=== PATIENT | female | born 1945 | race Caucasian/White ===

== ENCOUNTER 2022-09-14 12:01 | Emergency (ER) | payer MEDICARE, SELFPAY ==
--- NOTE | ~2022-09-14 | CT_ITS ---
EXAMINATION: CT brain, CT cervical spine and CT facial bones without IV contrast. Clinical indications: Head injury. Status post fall. COMPARISON: None. TECHNIQUE: 5 mm thin axial and reformatted 2 mm thin sagittal and coronal images of brain were obtained. 3 mm thin axial and reformatted 2 mm thin sagittal and coronal images of cervical spine were obtained. Lastly axial 3 mm thin and reformatted 1.5 mm thin sagittal and coronal images of facial bones were obtained. DLP [address] examination was performed using dose optimization technique as appropriate, variously including the following: Automated exposure control Adjustment of MA and/or KV according to patient size(this includes techniques or standardized protocols for targeted exams where dose is matched to indication/reason for exam; extremities or head. Use of iterative reconstruction techniques. FINDINGS: Brain: There is no acute intra-axial, extra-axial bleed, masses or midline shift. There is no acute infarction in evolution. There is no edema. The lateral ventricles are symmetrical in size and configuration but enlarged. The arreola to white matter differentiation is maintained normal. There is mild anterior falx calcification. Bone windows reveal no calvarial abnormality. No scalp soft tissue abnormality seen. Bilateral paranasal sinuses and mastoid air cells are well-aerated. Facial bones: There is no maxillofacial, nasal or mandibular fracture. The TM joints are symmetrical and normal. The maxillofacial and nasal soft tissues are normal. The bony orbits are intact. There is normal symmetry of bilateral optic globes, optic nerve and intraorbital orbital and preseptal soft tissues. There is 2.2 cm polyp or retention cyst left maxillary sinus. Rest of the paranasal sinuses are well-aerated. The nasal cavity and the nasal pharyngeal airway is widely patent. Mild elmo bullosa of right middle turbinate is noted. The anterior maxillary spine is intact. Cervical spine: There is mild straightening of cervical lordosis. The vertebral heights and alignment is normal. There is loss of C5-C6 and C7-T1 disc heights with mild ventral and posterior spondylosis at C4-C5, C5-C6 and C7-T1 disc levels. The craniovertebral junction and the C1-C2 alignment is normal. The prevertebral and paravertebral soft tissues are normal. There is moderate right C2-C3 facet joint arthropathy. No visible acute fracture, dislocation or subluxation seen. CT/CT cervical spine wo IV con IMPRESSION: 1. No acute intracranial process seen. 2. Age-related cerebral volume loss. 3. There is no maxillofacial, nasal or mandibular fracture. 4. There is no acute fracture or dislocation in cervical spine. There are degenerative disc changes C5-C6 and C7-T1 disc levels with spondylosis.
--- NOTE | ~2022-09-14 | XR_ITS ---
EXAMINATION: XR WRIST, LEFT XR HAND, LEFT CLINICAL INFORMATION: Fall, trauma, pain, visible deformity. COMPARISON: None available. TECHNIQUE: The left hand and wrist are imaged together and 3 large [id number] images. A navicular view of the wrist is also provided for a total of 4 views. FINDINGS: There is fracture distal radial metaphysis predominantly transverse, possibly comminuted, with impaction. No definite extension to the distal radial articular surface on plain film. There is slight positive ulnar variance with dorsal subluxation of the distal ulnar from the sigmoid notch. The remainder the bony structures appear intact. There are prominent osteoarthritic changes first carpometacarpal joint with joint narrowing and subchondral sclerosis and osteophytes. Mild narrowing second and third MCP joints present. XR/XR hand wrist LT IMPRESSION: -Fracture distal radial metaphysis, possibly comminuted, with impaction. -Positive ulnar variance with dorsal subluxation distal ulna from sigmoid notch. -Prominent osteoarthritis first carpometacarpal joint. Mild joint narrowing second and third MCP.
[2022-09-14 12:28] VITALS: BP 103/43; PULSE 56; RESP 20; TEMP 36.1; O2SAT 100; BMI 20.7
--- NOTE | 2022-09-14 12:30 | ED_ITS ---
HPI - Fall General Chief Complaint: Fall <ZACH Liao Last Filed: 09/14/22 12:36> Stated Complaint: Fall/Hit face/L wrist pain <ZACH Liao Last Filed: 09/14/22 12:36> Time Seen by Provider: 09/14/22 15:37 <ZACH Liao Last Filed: 09/14/22 12:36> Source: patient <Kane Clinton - Last Filed: 09/14/22 17:42> Limitations: no limitations <Kane Clinton - Last Filed: 09/14/22 17:42> History of Present Illness HPI Narrative: 76-year-old female presents to the ER after tripping and falling and injuring her left wrist. Patient states that happened approximately 1 hour ago and she fell on a paved driveway. Positive swelling and pain to the left wrist and associated nausea. Patient denies loss consciousness or hitting her head. Symptoms mild to moderate. Patient has a history of hypothyroidism has taken [id number] NSAIDs for pain in the past with states she has it does not take Tylenol. Pain in left wrist increases with any range of motion or palpation. <Kane Clinton - Last Filed: 09/14/22 17:42> Related Data Home Medications: Previous Rx's Medication Instructions Recorded ibuprofen 600 mg tablet 600 mg PO TID PRN pain #20 tabs 09/14/22 tramadol 50 mg tablet 50 mg PO BID PRN pain #14 tabs 09/14/22 <ZACH Liao Last Filed: 09/14/22 12:36> Allergies/Adverse Reactions: Allergies Allergy/AdvReac Type Severity Reaction Status Date / Time No Known Allergies Allergy Verified 09/14/22 12:30 <ZACH Liao Last Filed: 09/14/22 12:36> Review of Systems Review of Systems: General: No fever, no chills Ophthalmology: No vision changes, no discharge ENT: No sore throat, no ear pain Cardiovascular, no chest pain, no peripheral edema no shortness of breath Respiratory: No dyspnea, no sputum production, no cough Muscle skeletal: Positive left wrist pain and swelling GI: No abdominal pain: No nausea vomiting, no diarrhea Psychiatric: No depression Skin: Left wrist positive ecchymosis and swelling Immunology: No immunocompromised Hematology: No bleeding, no bruising <Kane Clinton - Last Filed: 09/14/22 17:42> FOR[facility]LY [facility], [facility] Social History Social History: Social History Advance Directives: No Advance Directives Information Provided: No <ZACH Liao - Last Filed: 09/14/22 12:36> Physical Exam Vital Signs: Vital Signs: Last Vital Signs Temp 97 F 09/14/22 12:28 Pulse 56 09/14/22 12:28 Resp 20 09/14/22 12:28 BP 103/43 L 09/14/22 12:28 Pulse Ox 100 09/14/22 12:28 O2 Del Method Room Air 09/14/22 12:28 BMI result Body Mass Index 20.7 <ZACH Liao - Last Filed: 09/14/22 12:36> Vital Signs: Last Vital Signs Temp 97 F 09/14/22 12:28 Pulse 56 09/14/22 12:28 Resp 20 09/14/22 12:28 BP 103/43 L 09/14/22 12:28 Pulse Ox 100 09/14/22 12:28 O2 Del Method Room Air 09/14/22 12:28 BMI result Body Mass Index 20.7 <Kane Clinton - Last Filed: 09/14/22 17:42> General appearance: Awake, alert, cooperative, in no acute distress Skin: Warm, dry, no rash, positive ecchymosis swelling to the dorsum of the left wrist Eyes: PERRL, EOMI, no icterus ENT: Oropharynx normal Neck: Soft supple full range of motion, no midline tenderness Pulmonary: Breath sounds clear to auscultation bilaterally, no accessory muscle use Cardiovascular: Regular rate and rhythm no murmurs and rubs Extremities: Left wrist positive swelling with dorsal edema slight deformity. Pulses sensation intact Neuro: Alert oriented x3, no focal deficit, hall worker is equal bilaterally Psych: Normal affect <Kane Clinton - Last Filed: 09/14/22 17:42> Course Course Course Narrative: RME: 76yo F w/PMHx hypothyroid c/o L facial pain, nausea and L wrist pain s/p mechanical trip in fall in driveway 30mins [employer]. states tripped over her pants, denies sx prior to fall. +head trauma, no LOC, denies taking AC. denies neck and back pain +L cheek ttp noted, no midline cervical ttp, +deformity to L wrist with ttp, NV intact Head/c-spine/facial CT and XRs ordered Full HPI, ROS and PE to be performed by primary ED provider. <ZACH Liao - Last Filed: 09/14/22 12:36> Medical Decision Making Medical Decision Making MDM Narrative: Close head injury Facial contusion Facial fracture Cervical fracture Left wrist contusion Left wrist sprain Left wrist fracture 76-year-old female status post fall in her driveway. Positive left wrist swelling and pain. Patient denies hitting her head or loss of consciousness. Will send message to orthopedics 17:00 Images reviewed by orthopedic PA use advised splint follow-up Saturday with orthopedics Will plan to apply sugar-tong ortho glass splint Sugar tongue splint applied by tech positive CMS post splint Placement will discharge home with sling. 600 mg Motrin p.o. <Kane Clinton - Last Filed: 09/14/22 17:42> Radiology Impression Radiologist Impression: [address] [id number] Scan ReportSigned Patient: Odette Thakkar GMR#: [id number]: 1945cct:[id number]/Sex: 76 / FADM Date: 09/14/22Loc: [email or web address].EDAttending Dr: Ordering Physician: Sahra Montez Date of Service: 09/14/22 Procedure(s): CT head/brain wo IV con Accession Number(s): [id number] cc: Sahra Montez~ EXAMINATION: CT brain, CT cervical spine and CT facial bones without IV contrast. Clinical indications: Head injury. Status post fall. COMPARISON: None. TECHNIQUE: 5 mm thin axial and reformatted 2 mm thin sagittal and coronal images of brain were obtained. 3 mm thin axial and reformatted 2 mm thin sagittal and coronal images of cervical spine were obtained. Lastly axial 3 mm thin and reformatted 1.5 mm thin sagittal and coronal images of facial bones were obtained. DLP [address] examination was performed using dose optimization technique as appropriate, variously including the following: Automated exposure control Adjustment of MA and/or KV according to patient size(this includes techniques or standardized protocols for targeted exams where dose is matched to indication/reason for exam; extremities or head. Use of iterative reconstruction techniques. FINDINGS: Brain: There is no acute intra-axial, extra-axial bleed, masses or midline shift. There is no acute infarction in evolution. There is no edema. The lateral ventricles are symmetrical in size and configuration but enlarged. The arreola to white matter differentiation is maintained normal. There is mild anterior falx calcification. Bone windows reveal no calvarial abnormality. No scalp soft tissue abnormality seen. Bilateral paranasal sinuses and mastoid air cells are well-aerated. Facial bones: There is no maxillofacial, nasal or mandibular fracture. The TM joints are symmetrical and normal. The maxillofacial and nasal soft tissues are normal. The bony orbits are intact. There is normal symmetry of bilateral optic globes, optic nerve and intraorbital orbital and preseptal soft tissues. There is 2.2 cm polyp or retention cyst left maxillary sinus. Rest of the paranasal sinuses are well-aerated. The nasal cavity and the nasal pharyngeal airway is widely patent. Mild elmo bullosa of right middle turbinate is noted. The anterior maxillary spine is intact. Cervical spine: There is mild straightening of cervical lordosis. The vertebral heights and alignment is normal. There is loss of C5-C6 and C7-T1 disc heights with mild ventral and posterior spondylosis at C4-C5, C5-C6 and C7-T1 disc levels. The craniovertebral junction and the C1-C2 alignment is normal. The prevertebral and paravertebral soft tissues are normal. There is moderate right C2-C3 facet joint arthropathy. No visible acute fracture, dislocation or subluxation seen. CT/CT head/brain wo IV con IMPRESSION: 1. No acute intracranial process seen. 2. Age-related cerebral volume loss. 3. There is no maxillofacial, nasal or mandibular fracture. 4. There is no acute fracture or dislocation in cervical spine. There are degenerative disc changes C5-C6 and C7-T1 disc levels with spondylosis. Dictated By:Gary Go MDSigned By:<Electronically signed by Gary Go MD in [place]>09/14/22 1418 [facility] [place] [id number] ReportSigned Patient: Odette Thakkar GMR#: [id number]: 1945cct:[id number]/Sex: 76 / FADM Date: 09/14/22Loc: [email or web address].EDAttending Dr: Ordering Physician: Sahra Montez Date of Service: 09/14/22 Procedure(s): XR hand wrist LT Accession Number(s): [id number] cc: Sahra Montez~ EXAMINATION: XR WRIST, LEFT XR HAND, LEFT CLINICAL INFORMATION: Fall, trauma, pain, visible deformity. COMPARISON: None available. TECHNIQUE: The left hand and wrist are imaged together and 3 large [id number] images. A navicular view of the wrist is also provided for a total of 4 views. FINDINGS: There is fracture distal radial metaphysis predominantly transverse, possibly comminuted, with impaction. No definite extension to the distal radial articular surface on plain film. There is slight positive ulnar variance with dorsal subluxation of the distal ulnar from the sigmoid notch. The remainder the bony structures appear intact. There are prominent osteoarthritic changes first carpometacarpal joint with joint narrowing and subchondral sclerosis and osteophytes. Mild narrowing second and third MCP joints present. XR/XR hand wrist LT IMPRESSION: -Fracture distal radial metaphysis, possibly comminuted, with impaction. -Positive ulnar variance with dorsal subluxation distal ulna from sigmoid notch. -Prominent osteoarthritis first carpometacarpal joint. Mild joint narrowing second and third MCP. <Kane Clinton - Last Filed: 09/14/22 17:42> Discharge Plan Discharge Clinical Impression: Distal radial fracture <ZACH Liao - Last Filed: 09/14/22 12:36> Patient Disposition: Home, Self-Care <ZACH Liao - Last Filed: 09/14/22 12:36> Instructions: Wrist Fracture in Adults (ED) <ZACH Liao - Last Filed: 09/14/22 12:36> Additional Instructions: Splint rest ice elevation Follow-up at orthopedics on Saturday Medication for discomfort Return if symptoms worsen <ZACH Liao - Last Filed: 09/14/22 12:36> Prescriptions: New tramadol 50 mg tablet 50 mg PO BID PRN (Reason: pain) Qty: 14 0RF ibuprofen 600 mg tablet 600 mg PO TID PRN (Reason: pain) Qty: 20 0RF <ZACH Liao - Last Filed: 09/14/22 12:36> Referrals: Gutierrez Inman MD [Physician] - 09/17/22 9:00 am (Distal radius fracture ) <ZACH Liao - Last Filed: 09/14/22 12:36>
[2022-09-14] MEDS: Ibuprofen 600 MG TABLET PO (17:44)
== END 2022-09-14 17:59 | disposition home or self-care (01) ==
PROVIDERS: Emergency Provider Emergency Medicine; PCP Family Medicine
DX: S52.592A Other fractures of lower end of left radius, initial encounter for closed fracture (principal); S52.692A Other fracture of lower end of left ulna, initial encounter for closed fracture; W01.10XA Fall on same level from slipping, tripping and stumbling with subsequent striking against unspecified object, initial encounter; Y93.89 Activity, other specified; Y92.014 Private driveway to single-family (private) house as the place of occurrence of the external cause; Y99.9 Unspecified external cause status
CPT/HCPCS: 29125; 70450; 70486; 72125; 73110; 73130; 99283; 99284

== ENCOUNTER → 2022-09-17 09:01 | Outpatient (BNVA) | payer MEDICARE, SELFPAY | PROVIDERS: PCP Family Medicine; Visit Provider Physician Assistant | DX: S52.502A Unspecified fracture of the lower end of left radius, initial encounter for closed fracture (principal) | CPT/HCPCS: 29125; 99202 ==